=== PATIENT | male | born 1960 ===

== ENCOUNTER 2016-09-11 10:08 | Emergency (ER) | payer OTHER ==
[2016-09-11] MEDS ORDERED: NS 0.9% 1000 ML* 1,000 ML IV ONE (10:29)
[2016-09-11] MEDS ORDERED: Ondansetron INJ* 2 MG/ML VIAL IV ONE (11:02)
[2016-09-11 11:13] LABS: Potassium 4.3 mmol/L (3.5-5.0)
[2016-09-11 11:14] LABS: BUN/Creatinine Ratio 17.1 (8-20); Calcium 9.8 mg/dL (8.6-10.3); EGFR African American 125.4 (>60); EGFR Non-African American 97.5 (>60)
[2016-09-11 11:15] LABS: C Reactive Protein 6.54 mg/L (< 5.00); Total Bilirubin 0.6 mg/dL (0.2-1.0)
[2016-09-11 11:16] LABS: Albumin 4.7 g/dL (3.2-5.2); Globulin 2.7 g/dL (2-4); Total Protein 7.4 g/dL (6.4-8.9)
[2016-09-11 11:22] LABS: Hematocrit 51 % (42-52); Hemoglobin 17.5 g/dl (14.0-18.0); Mean Corpuscular HGB Conc 34 g/dl (31-36); Mean Corpuscular Hemoglobin 30 pg (27-31); Mean Corpuscular Volume 88 fL (80-94); Mean Platelet Volume 9 um3 (7.4-10.4); Red Blood Count 5.85 10^6/ul (4.0-5.4); Red Cell Distribution Width 14 % (10.5-15); White Blood Count 13.7 10^3/ul (3.5-10.8)
[2016-09-11] MEDS ORDERED: Iohexol 300* (CONTRAST) 10 ML SDV IV ONE (12:21)
[2016-09-11] MEDS ORDERED: PROCHLORPERAZINE INJ 5 MG/ML 2 ML VIAL IV ONE (13:00)
[2016-09-11 13:23] LABS: Troponin I 0.03 ng/mL (<0.04)
[2016-09-11 13:38] VITALS: BP 142/97
--- NOTE | 2016-09-11 14:30 | RAD ---
CLINICAL HISTORY: Diffuse abdominal pain, vomiting COMPARISON: November 29, 2006 TECHNIQUE: Multiple contiguous axial CT scans were obtained of the abdomen and pelvis after the administration of intravenous contrast. Coronal and sagittal multiplanar reformations are submitted for review. Oral contrast was administered. Delayed images were obtained through the abdomen and pelvis. FINDINGS: LUNG BASES: The lung bases are clear. LIVER: The liver is diffusely low in attenuation compared to the spleen. There are no focal hepatic parenchymal masses. BILE DUCTS: There is no intrahepatic or extrahepatic biliary dilatation. GALLBLADDER: The gallbladder is normal, without pericholecystic inflammatory change. PANCREAS: The pancreas is normal, without mass or ductal dilatation. SPLEEN: There is a small cystic lesion of the spleen. This can identified in retrospect on the previous examination and is stable. UPPER GI TRACT: Evaluation of the gastrointestinal tract is limited by incomplete gastric distention. The upper GI tract is unremarkable. SMALL BOWEL AND MESENTERY: The small bowel is normal in contour, course, and caliber. There is no obstruction or dilatation. There is mild stranding of the mesenteric fat with multiple small, subcentimeter short axis mesenteric lymph nodes. There is no mesenteric lymphadenopathy by size criteria. COLON: There are diverticula of the proximal descending colon at the splenic flexure. There is a tubular, vermiform, hollow viscus that is blind ending, and originates from the cecum, consistent with a normal appendix. There is no periappendiceal inflammatory change. This is best seen on images 36 through 43 ADRENALS: Normal bilaterally. KIDNEYS: The kidneys are normal in shape, size, contour, and axis. There is no hydronephrosis or nephrolithiasis. BLADDER: The bladder is incompletely distended but is grossly normal. PELVIC ORGANS: The prostate gland is normal. The seminal vesicles are symmetric. AORTA: The aorta is normal. IVC: Unremarkable LYMPH NODES: As noted above, there are multiple small mesenteric lymph nodes without lymphadenopathy by size criteria. ABDOMINAL WALL: There is a small fat-containing inguinal hernia BONES AND SOFT TISSUES: Degenerative changes are noted most pronounced at L4-L5 and L5-S1 OTHER: None IMPRESSION: MILD COLONIC DIVERTICULOSIS. MILD INFLAMMATORY CHANGE OF THE MESENTERIC FAT WITH MULTIPLE SMALL MESENTERIC LYMPH NODES. THE DIFFERENTIAL INCLUDES MESENTERIC PANNICULITIS, MESENTERIC ADENITIS, OR LYMPHOMA. RECOMMEND ATTENTION ON FOLLOW-UP IMAGING. FATTY LIVER.
--- NOTE | 2016-09-11 15:15 | ED ---
Marisol Sheehan Alfonso, scribed for Harsh Posada MD on 09/11/16 at 1103 . Abdominal Pain/Male - HPI Summary HPI Summary: This patient is a 56 year old male presenting to [facility] c/o sharp upper abdominal pain since 2 days ago. He reports the pain worsened and was severe last night. His last BM was last night. He rates the pain 6/10 in severity. Sx aggravated and alleviated by nothing. He reports N/V, and abdominal cramps. He denies fever, melena, diarrhea, and constipation. - History of Current Complaint Chief Complaint: EDAbdPain Stated Complaint: ABD PAIN Time Seen by Provider: 09/11/16 10:52 Hx Obtained From: Patient Onset/Duration: Sudden Onset, Lasting Days - 2 days, Still Present Timing: Constant Severity Initially: Moderate Severity Currently: Moderate Pain Intensity: 6 Pain Scale Used: 0-10 Numeric Location: Other - Upper Character: Sharp Aggravating Factor(s): Nothing Alleviating Factor(s): Nothing Associated Signs And Symptoms: Positive: Other - He reports N/V, and abdominal cramps. He denies melena, diarrhea, constipation. - Allergies/Home Medications Allergies/Adverse Reactions: Allergies Allergy/AdvReac Type Severity Reaction Status Date / Time Penicillins Allergy Severe hives/difficulty Verified 09/11/16 10:15 breathing PMH/Surg Hx/FS Hx/Imm Hx Endocrine/Hematology History: Denies: Hx Diabetes, Hx Systemic Lupus Erythematosus, Hx Thyroid Disease Cardiovascular History: Reports: Hx Hypertension Denies: Hx Congestive Heart Failure Respiratory History: Reports: Hx Asthma Denies: Hx Chronic Obstructive Pulmonary Disease (COPD) GI History: Denies: Hx Ulcer History: Denies: Hx Dialysis, Hx Renal Disease Musculoskeletal History: Denies: Hx Rheumatoid Arthritis - Surgical History Surgery Procedure, Year, and Place: cardiac ablation 2 years ago Infectious Disease History: No Infectious Disease History: Denies: Hx Clostridium Difficile, Hx Hepatitis, Hx Human Immunodeficiency Virus (HIV), Hx of Known/Suspected MRSA, Traveled Outside the [place] in Last 30 Days - Family History Known Family History: Positive: Cardiac Disease - Grandfather, Other - Liver cancer grandfather - Social History Alcohol Use: None Substance Use Type: Reports: None Substance Use Comment - Amount & Last Used: occasionally Smoking Status (MU): Heavy Every Day Tobacco Smoker Type: Cigarettes Amount Used/How Often: 20 CIGARETTES/ DAY Length of Time of Smoking/Using Tobacco: 20 +YEARS Have You Smoked in the Last Year: No Review of Systems Negative: Fever Positive: Abdominal Pain - Sharp upper abd pain, Vomiting, Nausea, Other - Positive abdominal cramps; negative melena and constipation. Negative: Diarrhea All Other Systems Reviewed And Are Negative: Yes Physical Exam Triage Information Reviewed: Yes Vital Signs On Initial Exam: Initial Vitals Temp Pulse Resp BP Pulse Ox 97.0 F 55 18 163/90 98 09/11/16 10:12 09/11/16 10:12 09/11/16 10:12 09/11/16 10:12 09/11/16 10:12 Vital Signs Reviewed: Yes Appearance: Positive: Well-Appearing, Pain Distress - Mild Skin: Positive: Warm, Skin Color Reflects Adequate Perfusion, Dry Head/Face: Positive: Normal Head/Face Inspection Eyes: Positive: EOMI, ALLISON ENT: Positive: Normal ENT inspection Neck: Positive: Supple, Nontender Respiratory/Lung Sounds: Positive: Clear to Auscultation, Breath Sounds Present Cardiovascular: Positive: RRR Abdomen Description: Positive: Other: - Tympanic to percussion. Diffuse mild tenderness. No inguinal tenderness. Bowel Sounds: Positive: Hypoactive Musculoskeletal: Positive: Normal, Strength/ROM Intact Neurological: Positive: Normal, Sensory/Motor Intact, Alert, Oriented to Person Place, Time Psychiatric: Positive: Affect/Mood Appropriate - [place] Coma Scale Coma Scale Total: 15 Diagnostics - Vital Signs Vital Signs Temp Pulse Resp BP Pulse Ox 09/11/16 10:12 97.0 F 55 18 163/90 98 - Laboratory Lab Results: Lab Results 09/11/16 09/11/16 09/11/16 Range/Units 10:41 10:41 10:41 WBC 13.7 H (3.5-10.8) 10^3/ul RBC 5.85 H (4.0-5.4) 10^6/ul Hgb 17.5 (14.0-18.0) g/dl Hct 51 (42-52) % MCV 88 (80-94) fL MCH 30 (27-31) pg MCHC 34 (31-36) g/dl RDW 14 (10.5-15) % Plt Count 281 (150-450) 10^3/ul MPV 9 (7.4-10.4) um3 Neut % (Auto) 83.9 H (38-83) % Lymph % (Auto) 9.5 L (25-47) % [place] % (Auto) 5.4 (1-9) % Eos % (Auto) 0.7 (0-6) % Baso % (Auto) 0.5 (0-2) % Absolute Neuts (auto) 11.5 H (1.5-7.7) 10^3/ul Absolute Lymphs (auto) 1.3 (1.0-4.8) 10^3/ul Absolute Monos (auto) 0.7 (0-0.8) 10^3/ul Absolute Eos (auto) 0.1 (0-0.6) 10^3/ul Absolute Basos (auto) 0.1 (0-0.2) 10^3/ul Absolute Nucleated RBC 0 10^3/ul Nucleated RBC % 0 INR (Anticoag Therapy) 0.88 L (0.89-1.11) APTT 33.7 (26.0-36.3) seconds Sodium 145 (133-145) mmol/L Potassium 4.3 (3.5-5.0) mmol/L Chloride 114 H (101-111) mmol/L Carbon Dioxide 24 (22-32) mmol/L Anion Gap 7 (2-11) mmol/L BUN 14 (6-24) mg/dL Creatinine 0.82 (0.67-1.17) mg/dL Est GFR ( Amer) 125.4 (>60) Est GFR (Non-Af Amer) 97.5 (>60) BUN/Creatinine Ratio 17.1 (8-20) Glucose 131 H (70-100) mg/dL Lactic Acid (0.5-2.0) mmol/L Calcium 9.8 (8.6-10.3) mg/dL Total Bilirubin 0.60 (0.2-1.0) mg/dL AST 12 L (13-39) U/L ALT 10 (7-52) U/L Alkaline Phosphatase 60 (34-104) U/L Troponin I 0.03 (<0.04) ng/mL C-Reactive Protein 6.54 H (< 5.00) mg/L Total Protein 7.4 (6.4-8.9) g/dL Albumin 4.7 (3.2-5.2) g/dL Globulin 2.7 (2-4) g/dL Albumin/Globulin Ratio 1.7 (1-3) Lipase 39 (11.0-82.0) U/L 09/11/16 Range/Units 10:41 WBC (3.5-10.8) 10^3/ul RBC (4.0-5.4) 10^6/ul Hgb (14.0-18.0) g/dl Hct (42-52) % MCV (80-94) fL MCH (27-31) pg MCHC (31-36) g/dl RDW (10.5-15) % Plt Count (150-450) 10^3/ul MPV (7.4-10.4) um3 Neut % (Auto) (38-83) % Lymph % (Auto) (25-47) % [place] % (Auto) (1-9) % Eos % (Auto) (0-6) % Baso % (Auto) (0-2) % Absolute Neuts (auto) (1.5-7.7) 10^3/ul Absolute Lymphs (auto) (1.0-4.8) 10^3/ul Absolute Monos (auto) (0-0.8) 10^3/ul Absolute Eos (auto) (0-0.6) 10^3/ul Absolute Basos (auto) (0-0.2) 10^3/ul Absolute Nucleated RBC 10^3/ul Nucleated RBC % INR (Anticoag Therapy) (0.89-1.11) APTT (26.0-36.3) seconds Sodium (133-145) mmol/L Potassium (3.5-5.0) mmol/L Chloride (101-111) mmol/L Carbon Dioxide (22-32) mmol/L Anion Gap (2-11) mmol/L BUN (6-24) mg/dL Creatinine (0.67-1.17) mg/dL Est GFR ( Amer) (>60) Est GFR (Non-Af Amer) (>60) BUN/Creatinine Ratio (8-20) Glucose (70-100) mg/dL Lactic Acid 0.8 (0.5-2.0) mmol/L Calcium (8.6-10.3) mg/dL Total Bilirubin (0.2-1.0) mg/dL AST (13-39) U/L ALT (7-52) U/L Alkaline Phosphatase (34-104) U/L Troponin I (<0.04) ng/mL C-Reactive Protein (< 5.00) mg/L Total Protein (6.4-8.9) g/dL Albumin (3.2-5.2) g/dL Globulin (2-4) g/dL Albumin/Globulin Ratio (1-3) Lipase (11.0-82.0) U/L Result Diagrams: 09/11/16 10:41 09/11/16 10:41 Lab Statement: Any lab studies that have been ordered have been reviewed, and results considered in the medical decision making process. - CT CT A/P CT Interpretation Completed By: Radiologist - MILD COLONIC DIVERTICULOSIS. MILD INFLAMMATORY CHANGE OF THE MESENTERIC FAT WITH MULTIPLE SMALL MESENTERIC LYMPH NODES. THE DIFFERENTIAL INCLUDES MESENTERIC PANNICULITIS, MESENTERIC ADENITIS, OR LYMPHOMA. RECOMMEND ATTENTION ON FOLLOW-UP IMAGING. FATTY LIVER. - EKG 1309 Cardiac Rate: Bradycardia - BPM 46 EKG Rhythm: Sinus Bradycardia ST Segment: Normal Ectopy: None Abdominal Pain Fem Course/Dx - Course Course Of Treatment: NO CRITICAL CARE TIME. DISCUSSED RESULTS WITH PATIENT AND DR MASTERS, GI. DISCHARGE HOME STABLE, F/U WITH PMD, RETURN IF WORSE. - Diagnoses Provider Diagnoses: Abdominal pain, Adenitis - Provider Notifications Discussed Care Of Patient With: Arnol Masters Time Discussed With Above Provider: 15:02 Instructed by Provider To: Other - Consulted Dr. Masters (Gastroen low residue diet Discharge - Discharge Plan Condition: Stable Disposition: HOME Prescriptions: Ondansetron ODT TAB* [Zofran 4 MG Odt TAB*] 4 mg PO Q6H PRN #10 tab.odt PRN Reason: Nausea Patient Education Materials: Abdominal Pain (ED) Referrals: Ashok Stanley MD [Primary Care Provider] - Additional Instructions: FOLLOW UP WITH YOUR DOCTOR FOR YOUR ABDOMINAL PAIN. RETURN TO THE EMERGENCY DEPARTMENT FOR ANY WORSENING OF YOUR CONDITION; PAIN, FEVER, VOMITING, YOU FEEL ILL OR QUESTIONS OR CONCERNS. The documentation as recorded by the Marisol farmer Alfonso accurately reflects the service I personally performed and the decisions made by , Harsh Posada MD.
== END 2016-09-11 15:00 | disposition home or self-care (01) ==
LOC: ED 10:08
DX: I88.9 Nonspecific lymphadenitis, unspecified (principal); R11.2 Nausea with vomiting, unspecified; F17.210 Nicotine dependence, cigarettes, uncomplicated; R10.9 Unspecified abdominal pain
CPT/HCPCS: 36415; 74177; 80053; 83605; 83690; 84484; 85025; 85610; 85730; 86140; 93005; 96374; 96375; 99284; J0780; J2405; Q9967